=== PATIENT | male | born 1990 | race Caucasian/White ===

== ENCOUNTER 2022-04-07 08:46 | Emergency (ER) | payer SELFPAY ==
--- NOTE | 2022-04-07 08:51 | CTR_ITS ---
PROCEDURE INFORMATION: Exam: CT Neck With Contrast Exam date and time: 04/07/2022 9:20 AM Age: 31 years old Clinical indication: Dysphagia / difficulty swallowing; Other: Left facial/mandible pain; Additional info: Dental abscess w neck swelling, dysphagia TECHNIQUE: Imaging protocol: Computed tomography of the neck with contrast. Radiation optimization: All CT scans at this facility use at least one of these dose optimization techniques: automated exposure control; mA and/or kV adjustment per patient size (includes targeted exams where dose is matched to clinical indication); or iterative reconstruction. Contrast material: OMNIPAQUE 350; Contrast volume: 75 ml; Contrast route: INTRA-ARTERIAL (ARTERIAL); COMPARISON: No relevant prior studies available. RADIATION DOSE METRICS: Total DLP (mGy-cm): 450.31 FINDINGS: Brain: The visualized brain parenchyma appears normal. Mastoid air cells: The visualized mastoid air cells are well aerated. Dental: Possible thin odontogenic abscess extending along the lateral margin of the left mandible measuring approximately 3.1 x 1.5 x 0.5 cm (AP, craniocaudal, medial-lateral dimensions) (axial series 3, image 44; coronal series 601, image 63). The left masseter muscles appear unremarkable. Pharynx: Unremarkable. No significant tonsillar enlargement. The parapharyngeal fat is clear. Larynx: Unremarkable. Prevertebral and retropharyngeal spaces: Unremarkable. Salivary glands: Normal. Glands are normal in size. Thyroid: The thyroid gland is unremarkable. Lymph nodes: Reactive appearing left submandibular and a few cervical chain lymph nodes identified. Trachea: The visualized trachea is unremarkable. Lungs: Trace biapical pulmonary scarring. Mediastinal space: The visualized superior mediastinum appears normal. Esophagus: The visualized portions of the esophagus are unremarkable. Bones/joints: Unremarkable. No acute fracture. The visualized portions of the cervical spine are unremarkable. Soft tissues: Thickening of the left platysma muscle. No subcutaneous abscess identified. Other findings: Superficial fat stranding overlying the left mandibular region. Trace fluid and fat stranding deep to the platysma muscle. CT/CT neck w con* [id number] IMPRESSION: 1. Superficial soft tissue inflammatory changes noted overlying the left neck and mandibular region. Possible thin odontogenic abscess extending along the lateral margin of the left mandible. 2. Reactive adjacent lymphadenopathy.
[2022-04-07 08:55] VITALS: BP 136/84; PULSE 80; RESP 16; TEMP 37.2; O2SAT 98; BMI 22.8
--- NOTE | 2022-04-07 09:03 | W.ED.DENTAL ---
HPI - Dental/Oral General: Chief complaint: Dental/Oral Stated complaint: dental pain Time Seen by Provider: 04/07/22 08:50 Source: patient Mode of arrival: ambulatory Limitations: no limitations History of Present Illness: 31-year-old male comes in complaining of dental pain for the last months its gotten progressively worse during the time has not seen anyone now he states the swelling is developed on the left mandible extended under the mandible and down into the neck he states he feels like he is having difficulty swallowing at times. He has not noted any fever sweats or chills at home no other recent illness. MD Complaint: tooth pain Teeth map: 1. 2. 3. Associated symptoms: Reports odynophagia; Denies ear or mastoid pain or fever(s) Review of Systems Const: Denies: fever(s), chills, body aches, change in appetite, fatigue or malaise ENMT: Reports: throat pain, odynophagia and mouth pain; Denies: ear or mastoid pain, nasal discharge or nasal congestion Card: Denies: chest pain, edema, dyspnea on exertion or orthopnea Resp: Denies: dyspnea, productive cough or non-productive cough GI: Denies: abdominal pain, nausea, vomiting, hematemesis, coffee ground emesis, diarrhea, constipation, bloating, hematochezia or melena : Denies: flank pain, dysuria, urinary frequency or urinary urgency Skin/Breast: Denies: rash or pruritus [facility] ED PFSH: Medical History (Updated 04/08/22 @ 06:43 by Jacinto Velez DO) No significant past medical history Surgical History (Updated 04/08/22 @ 06:43 by Jacinto Velez DO) No pertinent past surgical history Physical Exam Const: COMMON NORMALS: no acute distress GENERAL APPEARANCE: cooperative and comfortable ORIENTATION/CONSCIOUSNESS: Yes awake, Yes oriented to person, Yes oriented to place and Yes oriented to time HENMT: COMMON NORMALS: normocephalic, atraumatic and hearing grossly normal bilaterally HEAD & SCALP: normocephalic and atraumatic OTHER: Significant facial swelling along the left mandible extending down into the submandibular space no induration of the skin mildly tender tender anterior cervical lymph nodes Neck/C-Spine: COMMON NORMALS: no JVD Resp: COMMON NORMALS: normal respiratory effort, No retractions, No use of accessory muscles and clear to auscultation bilaterally AUSCULTATION: clear to auscultation bilaterally Cardio: COMMON NORMALS: no JVD, regular rate, regular rhythm and No murmurs present (Cardio) RATE: regular rate RHYTHM: regular rhythm GI: COMMON NORMALS: Soft to palpation and No hepatosplenomegaly present AUSCULTATION: Yes normoactive bowel sounds PALPATION: Yes Soft to palpation, No Tenderness to palpation present (GI), No Guarding due to palpation present (GI) and Yes No hepatosplenomegaly present Extremity: COMMON NORMALS: normal to inspection, capillary refill normal, no clubbing, cyanosis or edema, no calf tenderness and no pedal edema Neuro: SENSORIUM/ORIENTATION: Yes oriented to person, Yes oriented to place and Yes oriented to time Skin: COMMON NORMALS: no rashes or lesions noted GENERAL SKIN EXAM: no rashes or lesions noted Course Vital Signs: Vital signs: Vital Signs Temperature 99.0 F 04/07/22 08:55 Pulse Rate 80 04/07/22 08:55 Respiratory Rate 16 04/07/22 08:55 Blood Pressure 136/84 04/07/22 08:55 Pulse Oximetry 98 04/07/22 08:55 MDM - Dental/Oral Medical Decision Making Cranial CT most superficial swelling small potential dental abscess clinically cannot really identify incision and drainage not really an option at this point. Patient to be started on oral antibiotics and pain medications. Strongly encouraged to follow-up with a dentist soon as he is able Medical Records I reviewed the patient's medical records. Lab Data I reviewed the patient's lab results. : 04/07/22 09:10 04/07/22 09:[address] 04/07/22 08:51 IMPRESSION: 1. Superficial soft tissue inflammatory changes noted overlying the left neck and mandibular region. Possible thin odontogenic abscess extending along the lateral margin of the left mandible. 2. Reactive adjacent lymphadenopathy. Laboratory Results WBC 12.5 10^3/uL (4.0-10.0) H 04/07/22 09:10 RBC 4.37 10^6/uL (4.1-5.3) 04/07/22 09:10 Hgb 13.5 g/dL (11.7-16.6) 04/07/22 09:10 Hct 38.6 % (42.0-52.0) L 04/07/22 09:10 MCV 88.3 fl (80-94) 04/07/22 09:10 MCH 30.9 pg (28.0-34.0) 04/07/22 09:10 MCHC 35.0 g/dL (30.0-36.0) 04/07/22 09:10 RDW 12.8 % (12.1-15.1) 04/07/22 09:10 Plt Count 243 10^3/cmm (130-400) 04/07/22 09:10 MPV 8.6 fL (7.4-10.4) 04/07/22 09:10 Neut % (Auto) 81.6 % 04/07/22 09:10 Lymph % (Auto) 8.6 % 04/07/22 09:10 [place] % (Auto) 7.8 % 04/07/22 09:10 Eos % (Auto) 1.1 % 04/07/22 09:10 Baso % (Auto) 0.3 % 04/07/22 09:10 Neut # (Auto) 10.23 10^3/uL (1.8-7.7) H 04/07/22 09:10 Lymph # (Auto) 1.1 10^3/uL (0.8-4.8) 04/07/22 09:10 [place] # (Auto) 1.0 10^3/uL (0.2-0.9) H 04/07/22 09:10 Eos # (Auto) 0.1 10^3/uL (0.0-0.8) 04/07/22 09:10 Baso # (Auto) 0.0 10^3/uL (0.0-0.1) 04/07/22 09:10 Nucleated RBC % (auto) 0 % 04/07/22 09:10 Nucleated RBCs # 0.0 /100WBC 04/07/22 09:10 Sodium 138 mmol/L (136-145) 04/07/22 09:10 Potassium 3.9 mmol/L (3.5-5.1) 04/07/22 09:10 Chloride 100 mmol/L (98-107) 04/07/22 09:10 Carbon Dioxide 26 mmol/L (22-29) 04/07/22 09:10 Anion Gap 15.9 (5-19) 04/07/22 09:10 BUN 14 mg/dL (6-20) 04/07/22 09:10 Creatinine 0.7 mg/dL (0.7-1.2) 04/07/22 09:10 GFR Calculation 130.7 mL/min (90-130) H 04/07/22 09:10 Glucose 102 mg/dL (65-115) 04/07/22 09:10 Calculated Osmolality 287 mOsm/kg (285-295) 04/07/22 09:10 Calcium 9.0 mg/dL (8.5-10.5) 04/07/22 09:10 Total Bilirubin 0.6 mg/dL (0.15-1.2) 04/07/22 09:10 AST 13 U/L (0-40) 04/07/22 09:10 ALT 12 U/L (0-41) 04/07/22 09:10 Alkaline Phosphatase 58 IU/L (40-130) 04/07/22 09:10 Total Protein 7.1 g/dL (6.6-8.7) 04/07/22 09:10 Albumin 4.5 g/dL (3.5-5.2) 04/07/22 09:10 Globulin 2.6 g/dL (1.3-4.6) 04/07/22 09:10 Discharge Plan Discharge Patient Disposition: Home Clinical Impression: Dental abscess Condition: Stable Prescriptions: New Augmentin 500-125 mg tablet 1 tab PO TID Qty: 30 0RF hydrocodone-acetaminophen 5-325 mg tablet 1 tab PO Q6H PRN (Reason: pain) Qty: 10 0RF Discharge Orders: Discharge ED (Routine); Ordered 04/07/22 Ordered By: Jacinto Velez Discharge Diet: Full LIquid Discharge Activity: Increase activity as tolerated Patient Instructions: Opioid Safety Activity Restrictions/Additional Instructions: Started on antibiotics and pain medication for dental abscess. This is not a definitive treatment you should see a dentist as soon as you are able. If the swelling worsens you develop any other complications particular difficulty with breathing or swallowing return to the emergency room immediately. Coding Level of Care Code ED Supervisor [employer] for David Garcia
[2022-04-07 09:17] LABS: Basophils % 0.3 %; Eosinophils # 0.1 10^3/uL (0.0-0.8); Eosinophils % 1.1 %; Hematocrit 38.6 % (42.0-52.0); Hemoglobin 13.5 g/dL (11.7-16.6); Lymphocytes # 1.1 10^3/uL (0.8-4.8); Lymphocytes % 8.6 %; Mean Corpuscular Hemoglobin 30.9 pg (28.0-34.0); Mean Corpuscular Volume 88.3 fl (80-94); Mean Platelet Volume 8.6 fL (7.4-10.4); Monocytes % 7.8 %; Neutrophils # 10.23 10^3/uL (1.8-7.7); Neutrophils % 81.6 %; Nucleated Red Blood Cells % 0 %; Platelet Count 243 10^3/cmm (130-400); Red Blood Count 4.37 10^6/uL (4.1-5.3); Red Cell Distribution Width 12.8 % (12.1-15.1); White Blood Count 12.5 10^3/uL (4.0-10.0)
[2022-04-07] MEDS: iohexol 350 mg/mL 100 mL Btl IV (09:26)
[2022-04-07 09:34] LABS: Alanine Aminotransferase 12 U/L (0-41); Albumin Level 4.5 g/dL (3.5-5.2); Alkaline Phosphatase 58 IU/L (40-130); Anion Gap 15.9 (5-19); Aspartate Amino Transferase 13 U/L (0-40); Blood Urea Nitrogen 14 mg/dL (6-20); Carbon Dioxide 26 mmol/L (22-29); Chloride 100 mmol/L (98-107); Creatinine Clr Calc Pharmacy 151.1631; Globulin 2.6 g/dL (1.3-4.6); Glomerular Filtration Rate 130.7 mL/min (90-130); Glucose 102 mg/dL (65-115); Osmolality Calculated 287 mOsm/kg (285-295); Potassium 3.9 mmol/L (3.5-5.1); Sodium 138 mmol/L (136-145); Total Bilirubin 0.6 mg/dL (0.15-1.2); Total Protein 7.1 g/dL (6.6-8.7)
== END 2022-04-07 10:32 | disposition home or self-care (01) ==
PROVIDERS: Emergency Provider Family Medicine
DX: K04.7 Periapical abscess without sinus (principal)
CPT/HCPCS: 70491; 80053; 85025; 99283; Q9967

== ENCOUNTER 2023-06-10 15:22 | Emergency (ER) | payer OTHER, SELFPAY ==
[2023-06-10 15:25] VITALS: BP 145/78; PULSE 63; RESP 18; TEMP 36.6; O2SAT 99
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
--- NOTE | 2023-06-10 15:44 | XR_ITS ---
WS: [id number] Lumbar spine, 3 views, 06/10/2023 Clinical Data: injury/pain Comparison: None. Findings: No subluxation is seen. There is loss of superior cortical height of the L5 vertebral body which coul d represent an old compression fracture. No disc space narrowing is seen. The transverse processes an d SI joints are normal. There is a large amount of fecal material throughout the colon. Impression: Loss of superior cortical height of the L5 vertebral body which could represent a compression fractur e of indeterminate age.
[2023-06-10] MEDS: ketorolac 60 mg/2 mL INJ IM (16:00)
[2023-06-10] MEDS: orphenadrine 30 mg/mL Inj 2 mL 60 MG IM (16:01)
[2023-06-10] MEDS: dexamethasone 10 mg/mL INJ 6 MG IM (16:01)
--- NOTE | 2023-06-11 08:14 | DCPLANNER ---
Addendum entered by Leni Angel 06/11/23 10:52: Patient has a follow up appointment scheduled for Friday, June 16, 2023 at 2:30 with Franky March at ortho. Original Note: economic development manager had message to schedule a follow up appointment for patient with ortho. economic development manager sent patients information to the front office staff at ortho. Patients information will be printed and reviewed. Clinic will call patient with appointment information.
== END 2023-06-10 16:43 | disposition home or self-care (01) ==
PROVIDERS: Emergency Provider Physician Assistant; PCP Family Medicine
DX: S32.050A Wedge compression fracture of fifth lumbar vertebra, initial encounter for closed fracture (principal); Z87.891 Personal history of nicotine dependence; X50.0XXA Overexertion from strenuous movement or load, initial encounter
CPT/HCPCS: 72100; 96372; 99284; J1100; J1885; J2360

== ENCOUNTER 2023-06-16 15:31 | Outpatient (CLI) | payer OTHER, SELFPAY | END 2023-06-16 15:32 | disposition home or self-care (01) | LOC: SPT 15:32 | PROVIDERS: PCP Family Medicine; Visit Provider Physician Assistant | DX: Z46.89 Encounter for fitting and adjustment of other specified devices (principal); S32.050D Wedge compression fracture of fifth lumbar vertebra, subsequent encounter for fracture with routine healing; X58.XXXD Exposure to other specified factors, subsequent encounter | CPT/HCPCS: 97760; L0637 ==

== ENCOUNTER 2023-07-10 14:16 | Outpatient (CLI) | payer OTHER, SELFPAY ==
--- NOTE | 2023-07-10 14:30 | MR_ITS ---
WS: [id number] MRI LUMBAR SPINE NONCONTRAST HISTORY: S32.050A - Wedge compression fracture of fifth lumbar vertebral body. COMPARISON: Radiograph 06/10/2023 TECHNIQUE: Sagittal and axial multisequence imaging is submitted. Normal lumbar alignment. Marrow edema throughout a large portion of the L5 vertebral body. There is m ild anterior wedging and a small cortical fragment from the anterior superior endplate. Slightly grea ter deformity along the LEFT lateral vertebral body. No marrow edema or fracture extends into the pos terior elements. Disc spaces and vertebral body heights are otherwise well-preserved. Conus terminates normally at L1-2 disc level. L1-L2: Normal. L2-L3: Normal. L3-L4: Very mild disc bulging and a small amount of fluid in the facet joints. L4-L5: Mild annular disc bulge. Moderate ligamentum flavum and mild facet arthritis. There is encroac hment upon the thecal sac and mild central and bilateral subarticular recess encroachment. L5-S1: Mild central stenosis persists posterior to the L5 vertebral body into the L5-S1 disc space. M ild ligamentum flavum and facet arthritis. No disc contact on the S1 nerve roots. Paravertebral soft tissues are negative. IMPRESSION: 1. Acute mild anterior compression deformity of L5 by approximately 25%. Anterior wedging is greatest along the LEFT lateral vertebral body. No marrow edema into the pedicles and no retropulsion. 2. Mild annular disc bulging encroaching upon the ventral thecal sac at L4-5. There is mild central a nd bilateral subarticular recess stenosis at L4-5. Mild disc encroachment upon the L5 nerve roots.
== END 2023-07-10 14:17 | disposition home or self-care (01) ==
PROVIDERS: PCP Family Medicine; Visit Provider Physician Assistant
DX: S32.050A Wedge compression fracture of fifth lumbar vertebra, initial encounter for closed fracture (principal); X58.XXXA Exposure to other specified factors, initial encounter; M51.36 Other intervertebral disc degeneration, lumbar region
CPT/HCPCS: 72148

== ENCOUNTER → 2023-08-11 14:20 | Outpatient (BNVA) | payer OTHER, SELFPAY | PROVIDERS: PCP Family Medicine; Visit Provider Physician Assistant | DX: S32.050A Wedge compression fracture of fifth lumbar vertebra, initial encounter for closed fracture (principal); X58.XXXA Exposure to other specified factors, initial encounter | CPT/HCPCS: 72100 ==

== ENCOUNTER → 2023-09-15 13:29 | Outpatient (BNVA) | payer OTHER, SELFPAY | PROVIDERS: PCP Family Medicine; Visit Provider Physician Assistant | DX: S32.050D Wedge compression fracture of fifth lumbar vertebra, subsequent encounter for fracture with routine healing (principal); X58.XXXD Exposure to other specified factors, subsequent encounter; F17.290 Nicotine dependence, other tobacco product, uncomplicated | CPT/HCPCS: 72100 ==

== ENCOUNTER → 2023-10-07 11:13 | Outpatient (BNVA) | payer OTHER, SELFPAY | PROVIDERS: PCP Family Medicine; Visit Provider Physician Assistant | DX: S32.050A Wedge compression fracture of fifth lumbar vertebra, initial encounter for closed fracture (principal); X58.XXXA Exposure to other specified factors, initial encounter | CPT/HCPCS: 72100 ==

== ENCOUNTER 2023-10-28 08:01 | Outpatient (RCR) | payer OTHER, SELFPAY | END 2023-11-04 23:59 | disposition home or self-care (01) | LOC: SPT 08:01 | PROVIDERS: Visit Provider Physician Assistant | DX: M54.50 Low back pain, unspecified (principal) | CPT/HCPCS: 97110; 97161 ==

== ENCOUNTER 2023-11-05 06:00 | Outpatient (RCR) | payer OTHER, SELFPAY | END 2023-12-03 23:59 | disposition home or self-care (01) | LOC: SPT 06:00 | PROVIDERS: Visit Provider Physician Assistant | DX: M54.50 Low back pain, unspecified (principal) | CPT/HCPCS: 97110 ==